=== PATIENT | male | born 1985 | race Caucasian/White ===

== ENCOUNTER 2018-02-22 12:42 | Emergency (ER) | payer OTHER ==
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
== END 2018-02-22 13:40 | disposition home or self-care (01) ==
LOC: MW.ED 12:42
DX: G89.29 Other chronic pain (principal); M54.6 Pain in thoracic spine
CPT/HCPCS: 99281